=== PATIENT | female | born 1995 | race Two or more races ===

== ENCOUNTER 2022-11-06 07:24 | Emergency (ER) | payer OTHER ==
[~2022-11-06] VITALS: Ht 157.5 cm; Wt 68.0 kg
[2022-11-06] MEDS ORDERED: AMOX-CLAV 875-1 EACH PO (08:51)
== END 2022-11-06 10:11 | disposition home or self-care (01) ==
LOC: ER 07:24
DX: K08.89 Other specified disorders of teeth and supporting structures (principal); Z87.09 Personal history of other diseases of the respiratory system; G40.909 Epilepsy, unspecified, not intractable, without status epilepticus

== ENCOUNTER 2023-01-27 10:48 | Emergency (ER) | payer OTHER ==
[~2023-01-27] VITALS: Ht 157.5 cm; Wt 63.5 kg
[~2023-01-27 10:48] MED LIST: AMOX-CLAV 875-1 EACH PO
[2023-01-27] MEDS ORDERED: AMBIEN5 MG (10:59)
[2023-01-27] MEDS ORDERED: LAMICTAL5 MG (11:00)
[2023-01-27] MEDS ORDERED: ANUSOL-HC30 G2 TOP (11:45)
== END 2023-01-27 12:26 | disposition home or self-care (01) ==
LOC: ER 10:48
DX: K64.8 Other hemorrhoids (principal); G40.802 Other epilepsy, not intractable, without status epilepticus

== ENCOUNTER 2023-01-28 07:35 | Emergency (ER) | payer OTHER ==
[~2023-01-28] VITALS: Ht 157.5 cm; Wt 63.5 kg
[~2023-01-28 07:35] MED LIST changes: +AMBIEN5 MG; +ANUSOL-HC30 G2 TOP; +LAMICTAL5 MG
== END 2023-01-28 08:56 | disposition home or self-care (01) ==
LOC: ER 07:35
DX: K64.8 Other hemorrhoids (principal); Z88.8 Allergy status to other drugs, medicaments and biological substances

== ENCOUNTER 2023-02-01 10:13 | Emergency (ER) | payer OTHER ==
[~2023-02-01] VITALS: Ht 157.5 cm; Wt 63.5 kg
== END 2023-02-01 21:26 | disposition home or self-care (01) ==
LOC: ER 10:13
DX: N83.209 Unspecified ovarian cyst, unspecified side (principal); N94.6 Dysmenorrhea, unspecified

== ENCOUNTER 2023-02-07 11:18 | Emergency (ER) | payer OTHER ==
[~2023-02-07] VITALS: Ht 157.5 cm; Wt 63.5 kg
[2023-02-07] MEDS ORDERED: AMBIEN5 MG (11:41)
[2023-02-07] MEDS ORDERED: LAMICTAL100 M1 (11:41)
== END 2023-02-07 17:28 | disposition home or self-care (01) ==
LOC: ER 11:18
DX: R10.2 Pelvic and perineal pain (principal); N83.202 Unspecified ovarian cyst, left side; Z88.8 Allergy status to other drugs, medicaments and biological substances

== ENCOUNTER 2023-12-16 11:39 | Emergency (ER) | payer OTHER ==
[~2023-12-16] VITALS: Ht 157.5 cm; Wt 86.6 kg
[~2023-12-16 11:39] MED LIST changes: +LAMICTAL100 M1
[2023-12-16] MEDS ORDERED: MIRTAZAPINE15 MG PO (12:28)
[2023-12-16] MEDS ORDERED: KETOROLAC TROMETHAMINE 60 MG VIAL IM ONE (13:45)
[2023-12-16 14:46] LABS: HEMATOCRIT 39.1 % (36.0-45.00); HEMOGLOBIN 13.9 g/dL (12.0-15.00); MEAN CELL VOLUME 91.9 fL (80.00-100.00); MEAN CORPUSCULAR HEMOGLOBIN 32.6 pg (27.00-32.0); MEAN CORPUSCULAR HGB CONC 35.5 g/dl (32.0-36.0); PLATELET COUNT 234 K/uL (150-450); RED BLOOD COUNT 4.26 M/uL (4.00-6.00); RED CELL DISTRIBUTION WIDTH 12.9 % (11.5-14.5)
== END 2023-12-16 18:44 | disposition home or self-care (01) ==
LOC: ER 11:40
PROVIDERS: General Practice
DX: N83.201 Unspecified ovarian cyst, right side (principal); Z88.8 Allergy status to other drugs, medicaments and biological substances; J45.909 Unspecified asthma, uncomplicated; G40.89 Other seizures; F32.89 Other specified depressive episodes

== ENCOUNTER 2023-12-18 12:28 | Emergency (ER) | payer OTHER ==
[~2023-12-18] VITALS: Ht 162.6 cm; Wt 90.7 kg
[~2023-12-18 12:28] MED LIST changes: +MIRTAZAPINE15 MG PO
[2023-12-18] MEDS ORDERED: MEPERIDINE HCL/PF 25 MG/ML VIAL IV ONE (14:00)
[2023-12-18 14:37] LABS: PH,URINE 6.5 (5.0-8.0); URINE APPEARANCE Clear; URINE BILIRRUBIN Negative (NEGATIVE); URINE BLOOD Negative; URINE COLOR Yellow; URINE GLUCOSE Negative (NEGATIVE); URINE LEUKOCYTE Negative; URINE NITRATE Negative; URINE PROTEIN Negative (NEGATIVE); URINE UROBILINOGEN 0.2 E.U./dl
[2023-12-18 14:41] LABS: URINE EPITHELIAL CELLS 9.2 uL (0.0-38.8); URINE RBC 5.3 uL (0.0-20.8); URINE WBC 16.9 uL (0.0-23.2)
[2023-12-18] MEDS ORDERED: TRIAMCINOLONE ACETONIDE 40 MG/ML VIAL IM ONE (20:00)
[2023-12-18] MEDS ORDERED: DICLOFENAC SODI75 MG PO (20:00)
[2023-12-18] MEDS ORDERED: KETOROLAC TROMETHAMINE 60 MG VIAL IM ONE (20:00)
== END 2023-12-18 20:26 | disposition home or self-care (01) ==
LOC: ER 12:29
PROVIDERS: Emergency Medicine
DX: R10.9 Unspecified abdominal pain (principal); Z88.8 Allergy status to other drugs, medicaments and biological substances
CPT/HCPCS: 74177; 96365; 96372; 99284; J1885; J3301; J3490; Q9965

== ENCOUNTER 2024-06-28 17:13 | Emergency (ER) | payer OTHER ==
[~2024-06-28] VITALS: Ht 157.5 cm; Wt 91.2 kg
[~2024-06-28 17:13] MED LIST changes: +DICLOFENAC SODI75 MG PO
[2024-06-28 17:44] VITALS: BP 99/70; O2SAT 99
[2024-06-28] MEDS ORDERED: METOCLOPRAMIDE HCL 5 MG/ML VIAL IM STA (17:51)
[2024-06-28] MEDS ORDERED: METOCLOPRAMIDE HCL 5 MG/ML VIAL ONE (17:59)
[2024-06-28 18:23] LABS: HEMATOCRIT 37.1 % (36.0-45.00); MEAN CELL VOLUME 91.6 fL (80.00-100.00); MEAN CORPUSCULAR HEMOGLOBIN 32.1 pg (27.00-32.0); PLATELET COUNT 218 K/uL (150-450); RED BLOOD COUNT 4.05 M/uL (4.00-6.00); RED CELL DISTRIBUTION WIDTH 12.9 % (11.5-14.5)
[2024-06-28 18:55] LABS: CALCIUM 9.1 mg/dL (8.5-10.1); CREATININE SERUM 0.67 mg/dL (0.55-1.02); GFR 103.34; POTASSIUM 3.95 mEq/L (3.5-5.1)
[2024-06-28] MEDS ORDERED: 0.9 % SODIUM CHLORIDE 1,000 ML IV STA (19:41)
[2024-06-28] MEDS ORDERED: KETOROLAC TROMETHAMINE 60 MG VIAL IM STA (22:41)
[2024-06-28] MEDS ORDERED: KETOROLAC TROMETHAMINE 60 MG VIAL IM ONE (22:47)
== END 2024-06-28 22:55 | disposition home or self-care (01) ==
LOC: ER 17:15
DX: K59.00 Constipation, unspecified (principal); N83.201 Unspecified ovarian cyst, right side; Z88.8 Allergy status to other drugs, medicaments and biological substances